=== PATIENT | male | born 1985 | race Caucasian/White ===

== ENCOUNTER 2021-04-22 13:08 | Emergency (ER) | payer OTHER ==
[2021-04-22 14:42] LABS: HEMOGLOBIN 14.3 gm/dl (14.0-17.5); RED BLOOD COUNT 4.56 M/UL (4.20-5.50); WHITE BLOOD COUNT 7.9 K/UL (4.5-11.0)
[2021-04-22 15:23] LABS: BUN/CREATININE RATIO 9 (0-10)
== END 2021-04-22 17:58 | disposition home or self-care (01) ==
LOC: ER1 13:08
PROVIDERS: Student in an Organized Health Care Education/Training Program
DX: H53.2 Diplopia (principal)
CPT/HCPCS: 70496; 80053; 85025; 99284; Q9967